=== PATIENT | female | born 1995 | race African-American/Black ===

== ENCOUNTER 2020-02-27 13:10 | Outpatient (CLI) | payer MEDICAID, SELFPAY ==
--- NOTE | ~2020-02-27 | US_ITS ---
EXAMINATION: US OB <= 14 weeks fetus DATE: 02/27/2020 13:50 INDICATION: Routine care. TECHNIQUE: Real-time transabdominal pelvic ultrasound was performed. COMPARISON: None. FINDINGS: The uterus measures 10.5 x 6.4 x 6.1 cm. There is an intrauterine gestational sac. A yolk sac is iden tified. The crown rump length measures 2.6 cm, which correlates with an estimated gestational age of 9 weeks and 3 day(s) (+/-) 6 day(s). heart motion is identified measuring 188 beats per minute (bpm) by M-mode Doppler. The right ovary measures 2.4 x 1.4 x 1.5 cm. The left ovary measures 2.4 x 1.2 x 1.3 cm. There is no free fluid in the pelvis. IMPRESSION: 1. Single living intrauterine gestation with estimated date of delivery of 09/28/2020. Reviewed, dictated and finalized at location A. IMPRESSION: 1. Single living intrauterine gestation with estimated date of delivery of 09/28.
== END 2020-02-27 13:11 | disposition home or self-care (01) ==
PROVIDERS: PCP Obstetrics & Gynecology; Visit Provider Obstetrics & Gynecology
DX: Z34.91 Encounter for supervision of normal pregnancy, unspecified, first trimester (principal); Z3A.00 Weeks of gestation of pregnancy not specified
CPT/HCPCS: 76801

== ENCOUNTER 2020-03-16 14:24 | Emergency (ER) | payer MEDICAID, SELFPAY ==
[2020-03-16] VITALS (8 sets, daily range): BP systolic 114–127; BP diastolic 66–78; PULSE 72–78; RESP 14–15; TEMP 36.3; O2SAT 97–100
[2020-03-16 14:53] LABS: Basophils Percent Auto 0.4 % (0.2-1.2); Eosinophils Absolute Auto 0.1 K/mm3 (0-0.3); Eosinophils Percent Auto 0.8 % (0-4.4); Hematocrit 36.8 % (37.0-47.0); Immature Granulocyte Absolute 0.04 K/mm3 (0.00-0.031); Immature Granulocyte Percent A 0.4 % (0-0.5); Lymphocytes Absolute Auto 2.72 K/mm3 (0.9-3.2); Lymphocytes Percent Auto 27.1 % (18.3-44.2); Mean Corpuscular HGB Conc 35.3 g/dl (32-36); Mean Corpuscular Hemoglobin 33.9 pg (26-34); Mean Corpuscular Volume 96.1 fl (80-100); Mean Platelet Volume 10.1 fl (7.4-10.4); Monocytes Absolute Auto 0.8 K/mm3 (0.1-0.6); Monocytes Percent Auto 7.8 % (2.6-8.5); Neutrophils Absolute Auto 6.4 K/mm3 (1.3-6.7); Neutrophils Percent Auto 63.5 % (45.5-73.1); Platelet Count Result 255 k/mm3 (150-375); Red Blood Count 3.83 M/mm3 (4.2-5.4); Red Cell Distribution Width 12.7 % (11.5-14.5)
[2020-03-16 15:00] LABS: Add Urine Microscopic? YES; Amorphous Sediment Urine Few; Appearance Urine Cloudy (Clear); Bilirubin Urine Negative (Negative); Blood Urine Negative (Negative); Color Urine Yellow (Yellow); Glucose Urine UA Negative (Negative); Ketones Urine Negative (Negative); Leukocyte Esterase Ur Negative LEU/UL (Negative); Mucus Urine Rare /lpf; Nitrate Urine Negative (Negative); Protein Urine Negative (Negative); RBC Urine 0-2 /hpf (0-2); Specific Grav Ur 1.009 (1.001-1.035); Squamous Epithelial Cell Urine Rare /hpf (Few); Urobilinogen Urine Negative mg/dL (<2.0)
[2020-03-16] MEDS: ACETAMINOPHEN 500 MG TABLET 1000 MG PO (15:19)
[2020-03-16] MEDS: SODIUM CHLORIDE 0.9% IV 1,000 ML 999 ML IV CONT (15:19)
[2020-03-16 15:25] LABS: Alanine Aminotransferase 13 U/L (4-35); Albumin Level 3.9 g/dL (3.5-5.1); Alkaline Phosphatase 65 U/L (38-126); Anion Gap 5 mmol/L (8-16); Aspartate Amino Transferase 21 U/L (14-36); Bilirubin,Total < 0.1 mg/dL (0.2-1.3); Blood Urea Nitrogen 3 mg/dL (7-17); Calcium 9.5 mg/dL (8.4-10.2); Carbon Dioxide 28 mmol/L (22-30); Chloride 102 mmol/L (98-107); Estimated CRCL calculation 114 ml/min; Estimated Glomerular Filt Rate > 60; Glucose 81 mg/dL (65-105); Lipase 41 U/L (23-300); Potassium 3.4 mmol/L (3.4-5.0); Sodium 135 mmol/L (137-145)
--- NOTE | 2020-03-16 15:39 | ED.ABDPAIN ---
HPI - Abdominal Pain General Chief Complaint: Abdominal Pain Stated Complaint: 11 weeks , abd cramping, migraine Time Seen by Provider: 03/16/20 14:35 History of Present Illness HPI narrative: Patient is a 24-year-old female who presents ER with dizziness and abdominal discomfort. Patient is 11 weeks . She has a known IUP. She sees Dr. Calvillo. Reports she has had normal p.o. intake. However over the last day she is developed more abdominal cramping and she gets dizzy when she goes from lying to sitting or sitting to standing. No fevers or chills or sweats. No vaginal bleeding or vaginal discharge. She has been without vomiting or diarrhea. No aggravating or alleviating factors. Patient also reports having frontal headache that is typical for her. No change in vision or hearing. Related Data Home Medications Medication Instructions Recorded Confirmed PNV,calcium 71-estv-hdinl acid tablet PO 03/16/20 [ Vitamin Plus Low Iron] Allergies Allergy/AdvReac Type Severity Reaction Status Date / Time No Known Allergies Allergy Verified 03/16/20 14:34 Review of Systems Review of Systems: All systems reviewed & are unremarkable except as noted in HPI and below Constitutional: Constitutional: Denies chills, Denies fever(s) and Denies weakness ENT: Denies nasal congestion and Denies sore throat Cardiovascular: Cardiovascular: Denies chest pain and Denies radiating jaw, neck or arm pain Respiratory: Respiratory: Denies cough, Denies dyspnea and Denies wheezing Gastrointestinal: Gastrointestinal: Reports abdominal pain, Denies diarrhea, Denies nausea and Denies vomiting Genitourinary: Genitourinary: Denies abnormal vaginal bleeding, Denies dysuria and Denies vaginal discharge PMFSH Past Medical History Medical History (Updated 03/16/20 @ 16:29 by Thomas Jackson MD) Healthy female adult Surgical History Surgical History (Updated 03/16/20 @ 15:42 by Thomas Jackson MD) No history of previous surgery Social History Social History (Updated 03/16/20 @ 15:42 by Thomas Jackson MD) Smoking status: Never smoker Gender identity (if verbalized by the patient): Female Exam Narrative: Exam Narrative: GENERAL: Well-appearing, well-nourished, and in no acute distress. HEAD: Normocephalic, atraumatic. ENT: Mucous membranes moist. CHEST: Clear to auscultation. No respiratory distress. HEART: Regular rate and rhythm. Normal peripheral pulses. ABDOMEN: Soft, nontender, nondistended. EXTREMITIES: Normal range of motion. No edema. SKIN: Warm, dry, no rash. NEURO: Alert and oriented x3. PSYCH: Normal mood and affect. Course Course Emergency Course: Patient informed of results. Feels better with fluids and Tylenol. Discharge home. Vital Signs Vital signs: Vital Signs Temperature 97.4 F L 03/16/20 14:30 Pulse Rate 78 03/16/20 14:30 Respiratory Rate 14 03/16/20 14:30 Blood Pressure 118/66 03/16/20 14:30 Pulse Oximetry 100 03/16/20 14:30 Temperature 97.4 F L 03/16/20 14:30 Pulse Rate 78 03/16/20 14:30 Respiratory Rate 14 03/16/20 14:30 Blood Pressure 114/71 03/16/20 15:01 Pulse Oximetry 100 03/16/20 16:15 MDM - Abdominal Pain Lab Data Result diagrams: 03/16/20 14:39 03/16/20 15:09 Labs: Lab Results 03/16/20 03/16/20 03/16/20 Range/Units 14:39 14:40 15:09 WBC 10.0 (4.5-10.0) K/mm3 RBC 3.83 L (4.2-5.4) M/mm3 Hgb 13.0 (12.0-15.0) g/dL Hct 36.8 L (37.0-47.0) % MCV 96.1 (80-100) fl MCH 33.9 (26-34) pg MCHC 35.3 (32-36) g/dl RDW 12.7 (11.5-14.5) % Plt Count 255 (150-375) k/mm3 MPV 10.1 (7.4-10.4) fl Immature Gran % (Auto) 0.4 (0-0.5) % Neut % (Auto) 63.5 (45.5-73.1) % Lymph % (Auto) 27.1 (18.3-44.2) % [place]upe % (Auto) 7.8 (2.6-8.5) % Eos % (Auto) 0.8 (0-4.4) % Baso % (Auto) 0.4 (0.2-1.2) % Lymph # (Auto) 2.72 (0.
== END 2020-03-16 16:53 | disposition home or self-care (01) ==
PROVIDERS: Emergency Medicine; Emergency Provider Emergency Medicine; PCP Obstetrics & Gynecology
DX: R51.9 Headache, unspecified (principal); R10.9 Unspecified abdominal pain
CPT/HCPCS: 36415; 80053; 81001; 83690; 85025; 96360; 99283; A9270; J7030

== ENCOUNTER 2020-04-14 17:13 | Emergency (ER) | payer BC, SELFPAY ==
[2020-04-14 17:35] VITALS: PULSE 77; RESP 18; TEMP 36.9; O2SAT 100
--- NOTE | 2020-04-14 19:39 | PC.NURSE ---
Pt. seen amb out of ed w/ steady gait by ed database security administrator.
== END 2020-04-14 19:39 | disposition left against medical advice (07) ==
LOC: ANHED 19:47
PROVIDERS: PCP Obstetrics & Gynecology
DX: O9A.212 Injury, poisoning and certain other consequences of external causes complicating pregnancy, second trimester (principal)
CPT/HCPCS: 99199

== ENCOUNTER 2020-04-15 08:44 | Emergency (ER) | payer BC, SELFPAY ==
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
[2020-04-15 08:45] VITALS: BP 121/70; PULSE 90; RESP 16; TEMP 36.8; O2SAT 100
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
[2020-04-15 10:34] LABS: Add Urine Microscopic? YES; Appearance Urine Turbid (Clear); Bilirubin Urine Negative (Negative); Blood Urine Negative (Negative); Color Urine Yellow (Yellow); Glucose Urine UA Negative (Negative); Ketones Urine Negative (Negative); Leukocyte Esterase Ur 3+ LEU/UL (Negative); Mucus Urine Rare /lpf; Nitrate Urine Negative (Negative); Protein Urine Negative (Negative); Specific Grav Ur 1.011 (1.001-1.035); Squamous Epithelial Cell Urine Many /hpf (Few); Urobilinogen Urine Negative mg/dL (<2.0)
[2020-04-15 10:53] LABS: Basophils Percent Auto 0.3 % (0.2-1.2); Eosinophils Percent Auto 0.3 % (0-4.4); Hematocrit 35.5 % (37.0-47.0); Hemoglobin 12.7 g/dL (12.0-15.0); Immature Granulocyte Percent A 0.9 % (0-0.5); Lymphocytes Absolute Auto 1.93 K/mm3 (0.9-3.2); Lymphocytes Percent Auto 16.8 % (18.3-44.2); Mean Corpuscular HGB Conc 35.8 g/dl (32-36); Mean Corpuscular Hemoglobin 33.6 pg (26-34); Mean Corpuscular Volume 93.9 fl (80-100); Mean Platelet Volume 9.9 fl (7.4-10.4); Monocytes Absolute Auto 0.7 K/mm3 (0.1-0.6); Monocytes Percent Auto 6.2 % (2.6-8.5); Neutrophils Absolute Auto 8.7 K/mm3 (1.3-6.7); Neutrophils Percent Auto 75.5 % (45.5-73.1); Platelet Count Result 262 k/mm3 (150-375); Red Blood Count 3.78 M/mm3 (4.2-5.4); Red Cell Distribution Width 12.6 % (11.5-14.5); White Blood Count 11.5 K/mm3 (4.5-10.0)
[2020-04-15 11:07] LABS: Anion Gap 3 mmol/L (8-16); Blood Urea Nitrogen 3 mg/dL (7-17); Calcium 9.3 mg/dL (8.4-10.2); Carbon Dioxide 28 mmol/L (22-30); Chloride 104 mmol/L (98-107); Estimated CRCL calculation 119 ml/min; Estimated Glomerular Filt Rate > 60; Glucose 78 mg/dL (65-105); Potassium 3.6 mmol/L (3.4-5.0); Sodium 135 mmol/L (137-145)
== END 2020-04-15 12:04 | disposition home or self-care (01) ==
PROVIDERS: Emergency Medicine Emergency Medical Services; Emergency Provider Emergency Medicine; PCP Obstetrics & Gynecology
DX: O26.892 Other specified pregnancy related conditions, second trimester (principal); R10.9 Unspecified abdominal pain; O46.8X2 Other antepartum hemorrhage, second trimester; Z3A.15 15 weeks gestation of pregnancy; Y04.0XXA Assault by unarmed brawl or fight, initial encounter
CPT/HCPCS: 36415; 76816; 80048; 81001; 85025; 85461; 87086; 99284

== ENCOUNTER 2020-07-06 15:41 | Outpatient (CLI) | payer BC, SELFPAY ==
--- NOTE | ~2020-07-06 | US_ITS ---
EXAMINATION: US OB >= 14 weeks Fetus DATE: 07/06/2020 16:24 INDICATION: Encounter for supervision of normal during third trimester TECHNIQUE: Real-time ultrasound of the pelvis was performed. The interpreting radiologist was not pre sent for the study. COMPARISON: 04/15/2020 FINDINGS: There is a single living fetus in vertex presentation. The placenta is anterior and not low-lying wi th caudal margin >7 cm from the region of the cervical os which is obscured by the vertex. There is a small hypoechoic subchorionic hematoma along the right inferior margin of the placenta which measure s 4.6 x 3.2 x 0.8 cm. heart rate is 149 beats per minute (bpm). The amniotic fluid index is 15 .9 cm, which is normal (5th%-95%: 9.5-22.6 cm at 27 weeks estimated gestational age). The following biometric data were obtained: BPD: 7.4 cm -> 29 weeks 5 days Head circumference: 27.2 cm -> 29 weeks 5 days Abdominal circumference: 24.0 cm -> 28 weeks 2 days Femur length: 5.3 cm -> 28 weeks 1 days These measurements are concordant. Head circumference to abdominal circumference ratio: 1.13 (normal range 0.99-1.21). Estimated weight: 1237 g (+/-) 186 g. or 2 lbs. 12 oz. (+/-) 7 oz. IMPRESSION: 1. Single living fetus in vertex presentation with heart rate of 149 bpm. 2. Small subchorionic hematoma. 3. Normal amniotic fluid index of 15.9 cm. 3. Estimated weight is 79th percentile by Hadlock criteria when 10/02/2020 is used as the estimat ed date of delivery (ALEXIS). Please correlate with clinical information or earlier ultrasounds for most accurate ALEXIS. Reviewed, dictated and finalized at location A. ERCIAL SALES SPECIALIST IMPRESSION: 1. Single living fetus in vertex presentation with heart rate of 149 bpm. 2. Small subchorionic hematoma. 3. Normal amniotic fluid index of 15.9 cm. 3. Estimated weight is 79th percentile by Hadlock criteria when 10/02/2020 is used as the estimated date of delivery (ALEXIS). Please correlate with clinical information or earlier ultrasounds for most accurate ALEXIS.
== END 2020-07-06 15:42 | disposition home or self-care (01) ==
PROVIDERS: PCP Obstetrics & Gynecology; Visit Provider Physician Assistant
DX: Z34.93 Encounter for supervision of normal pregnancy, unspecified, third trimester (principal); Z3A.00 Weeks of gestation of pregnancy not specified
CPT/HCPCS: 76805

== ENCOUNTER 2020-07-28 13:01 | Outpatient (CLI) | payer BC, SELFPAY ==
--- NOTE | ~2020-07-28 | US_ITS ---
EXAMINATION: US OB follow up EXAM DATE: 07/28/2020 13:28 INDICATION: Subchorionic hematoma follow-up. Follow-up growth. 3rd trimester. TECHNIQUE: Pelvic obstetrical transabdominal sonogram was performed by a technologist. There are mu ltiple grayscale and Doppler images available for interpretation. Comparison is made to prior examina tion from 07/06/2020. FINDINGS: There is a single fetus identified in vertex presentation with a heart rate of 134 beats pe r minute. The placenta is located in the anterior position. There is no sonographic evidence of retr oplacental hemorrhage identified, previously seen placental abnormality no longer identified. There i s subjectively expected amount of amniotic fluid. BIOMETRIC DATA: Biparietal diameter (BPD): 8.1cm ----------------> 32 weeks 5 days. Head circumference (HC): 27.9 cm ----------------> 30 weeks 3 days. Abdominal circumference (AC): 26.6 cm ----------> 30 weeks 5 days. Femur length (FL): 6.0 cm --------------------------> 31 weeks 1 day. These measurements are concordant. HC/AC ratio is 1.05 (The 5th -- 95th percentile range is 0.96-1.16. Estimated weight is 1677 g +/- 252 g. This is the 52nd percentile when the currently reported clinical gestation age 30 weeks 4 days, clinical estimated date of delivery (ALEXIS-OPE) 10/02/2020 is use d. estimated gestational age based on measurements from this exam is 31 weeks 2 days, with an e stimated date of delivery (ALEXIS-AUA) 09/27/2020. IMPRESSION: 1. Single fetus in vertex presentation with heart rate 134 beats per minute. 2. Estimated weight of 1677 grams, 52nd percentile using the currently reported clinical gesta tion age of 30 weeks 4 days, ALEXIS(OPE) 10/02/2020. 3. Previously seen placental abnormality no longer identified. Reviewed, dictated and finalized at location A. SECURITY ARCHITECT IMPRESSION: 1. Single fetus in vertex presentation with heart rate 134 beats per minute. 2. Estimated weight of 1677 grams, 52nd percentile using the currently r eported clinical gestation age of 30 weeks 4 days, ALEXIS(OPE) 10/02/2020. 3. Previously seen placental abnormality no longer identified.
== END 2020-07-28 13:02 | disposition home or self-care (01) ==
PROVIDERS: PCP Obstetrics & Gynecology; Visit Provider Physician Assistant
DX: O46.93 Antepartum hemorrhage, unspecified, third trimester (principal); Z3A.30 30 weeks gestation of pregnancy
CPT/HCPCS: 76816

== ENCOUNTER 2020-09-25 06:50 | Inpatient (IN) | payer BC, SELFPAY ==
[2020-09-25] VITALS (48 sets, daily range): BP systolic 96–160; BP diastolic 48–112; PULSE 61–99; RESP 16; TEMP 36.7–37.3; O2SAT 99; BMI 26.4
--- NOTE | 2020-09-25 07:20 | P.PNAN_ITS ---
Anes - Eval Pre Procedure Procedure: labor epidural Date/Time: 09/25/20 07:20 Surgeon: marta Preop Diagnosis: pain during labor Pre Op Diagnosis: IOL Patient Data Age: 24 Gender: F Height: Weight: Allergies Allergy/AdvReac Type Severity Reaction Status Date / Time No Known Allergies Allergy Verified 04/15/20 09:03 Home Medications Medication Instructions Recorded Confirmed Type No Home Medications 09/02/20 09/02/20 History Patient hx anesthesia problems: none Family hx anesthesia problems: none [facility] Past Medical History Medical History Healthy female adult Surgical History Surgical History No history of previous surgery Family History Family History (Updated 09/02/20 @ 12:58 by David Schmitz RN) Other No pertinent family history Social History Social History Smoking status: Never smoker Substance use: never Gender identity (if verbalized by the patient): Female Spiritual care concerns: No Exam Day of Procedure 09/25/20 07:20
[2020-09-25 07:24] LABS: Basophils Percent Auto 0.4 % (0.2-1.2); Eosinophils Absolute Auto 0.1 K/mm3 (0-0.3); Eosinophils Percent Auto 1.3 % (0-4.4); Hematocrit 33.2 % (37.0-47.0); Hemoglobin 11.5 g/dL (12.0-15.0); Immature Granulocyte Absolute 0.12 K/mm3 (0.00-0.031); Immature Granulocyte Percent A 1.2 % (0-0.5); Lymphocytes Absolute Auto 2.32 K/mm3 (0.9-3.2); Lymphocytes Percent Auto 23.1 % (18.3-44.2); Mean Corpuscular HGB Conc 34.6 g/dl (32-36); Mean Corpuscular Hemoglobin 32.8 pg (26-34); Mean Corpuscular Volume 94.6 fl (80-100); Mean Platelet Volume 10.4 fl (7.4-10.4); Monocytes Percent Auto 9.8 % (2.6-8.5); Neutrophils Absolute Auto 6.5 K/mm3 (1.3-6.7); Neutrophils Percent Auto 64.2 % (45.5-73.1); Platelet Count Result 192 k/mm3 (150-375); Red Blood Count 3.51 M/mm3 (4.2-5.4); Red Cell Distribution Width 13.9 % (11.5-14.5); White Blood Count 10.1 K/mm3 (4.5-10.0)
[2020-09-25] MEDS: LACTATED RINGERS 1,000 ML 125 ML IV CONT (07:24)
[2020-09-25] MEDS: OXYTOCIN 30 UNITS/NS 500 ML 30 UNITS/500 ML BAG IV CONT (07:24)
--- NOTE | 2020-09-25 07:26 | LDADM ---
This patient, Yolanda Moulton, was admitted to Labor/Delivery/Recovery 105 on 09/25/20 at 06:50. Plans for labor, pain management and were discussed with patient. Patient/family oriented to hospital policies and general routines including ID bracelet, bed and alarms, visiting hours, pain management, procedures, bathroom and other care routines, personal items, smoking policy, room service/diet and guest tray routines, security routines, and visiting hours. Patient/Family are encouraged to report perceived risks to care and to ask questions if they do not understand what they are told or what they should do. See OBIX for further documentation.
[2020-09-25 08:42] LABS: Amphetamine Screen Urine Negative (Negative); Barbiturate Screen Urine Negative (Negative); Benzodiazepines Screen Urine Negative (Negative); Cannabinoid Screen Urine Positive (Negative); Cocaine Screen Urine Negative (Negative); Methadone Screen Urine Negative (Negative); Opiate Screen Urine Negative (Negative); Phencyclidine Screen Urine Negative (Negative)
--- NOTE | 2020-09-25 14:04 | PM.IMHP ---
H&P: HPI History of Present Illness Date/Time: 09/25/20 14:04 24yo F presents for elective IOL at 39w4d. History of rapid labor I explained her condition procedure and risks she understands accepts and agrees to proceed she understands maternal or indications for delivery with risk involved including but not limited to bleeding infection injury to bladder bowel baby pelvic vessels DVT pneumonia wound infection dystocia post hemorrhage and the risk of anesthesia Chief Complaint: Term Elective induction of labor Review of Systems Review of Systems: All systems reviewed & are unremarkable except as noted in HPI and below Constitutional: Constitutional: Reports no additional constitutional complaints Eyes: Eyes: Reports no additional eye complaints ENT: Reports system reviewed and no additional complaints, except as documented Cardiovascular: Cardiovascular: Reports no additional cardiovascular complaints Respiratory: Respiratory: Reports no additional respiratory complaints Gastrointestinal: Gastrointestinal: Reports no additional gastrointestinal complaints Genitourinary: Genitourinary: Reports no additional female genitourinary complaints Musculoskeletal: Musculoskeletal: Reports no additional musculoskeletal complaints Integumentary/Breasts: Skin/Breast: Reports system reviewed and no additional complaints, except as docu Neurologic: Reports system reviewed and no additional complaints, except as documented Psychiatric: Psychiatric: Reports no additional psychiatric complaints Endocrine: Endocrine: Reports no additional endocrine complaints Hematologic/Lymphatic: Hematologic/Lymphatic: Reports no additional hematologic/lymphatic complaints Allergic/Immunologic: Allergic/Immunologic: Reports no additional allergic/immunologic complaints [facility] Past Medical History Medical History (Updated 09/25/20 @ 14:18 by Edwin Calvillo MD) BV (bacterial vaginosis) Candidiasis, vagina Healthy female adult Trichomonal vaginitis Vaginal delivery 01/30/20131407 lbs.6 oz.MStandard Vaginal [facility] Surgical History Surgical History No history of previous surgery Family History Family History Other No pertinent family history Social History Social History (Updated 09/25/20 @ 14:18 by Edwin Calvillo MD) Smoking status: Never smoker Second hand tobacco smoke exposure: No Alcohol intake: never Substance use: never Substance use type: marijuana Living arrangements: with family Occupation/Education: unemployed Gender identity (if verbalized by the patient): Female Sexual Orientation (if Verbalized by the Patient): Straight or Heterosexual Spiritual care concerns: No Agree to blood products: Yes Meds Home Medications and Allergies Home Medications Medication Instructions Recorded Confirmed Type No Home Medications 09/02/20 09/02/20 History Allergies Allergy/AdvReac Type Severity Reaction Status Date / Time No Known Allergies Allergy Verified 04/15/20 09:03 Vital Signs Vital Signs - 24 hr 09/25/20 07:30 09/25/20 07:46 09/25/20 08:00 Temperature 98.2 F Pulse Rate 82 77 70 Blood Pressure 120/78 107/61 110/67 09/25/20 08:15 09/25/20 08:30 09/25/20 08:45 Temperature Pulse Rate 66 66 64 Blood Pressure 103/87 113/71 112/66 09/25/20 09:00 09/25/20 09:16 09/25/20 09:30 Temperature 98.2 F Pulse Rate 71 69 Blood Pressure 104/64 107/57 L 09/25/20 09:46 09/25/20 10:00 09/25/20 10:15 Temperature Pulse Rate 67 65 64 Blood Pressure 107/87 101/55 L 96/49 L 09/25/20 10:30 09/25/20 10:45 09/25/20 11:00 Temperature Pulse Rate 76 87 67 Blood Pressure 110/66 102/73 116/63 09/25/20 11:30 09/25/20 11:31 09/25/20 11:46 Temperature 98.2 F Pu
--- NOTE | 2020-09-25 14:13 | WPDHPUPDATE1 ---
History and Physical Update Update Date/Time: 09/25/20 14:13 History and Physical has been reviewed, including an updated exam of the patient. There are NO changes in the patient's condition. Risks, benefits, and alternatives have been discussed and questions answered. Patient agrees to proceed with procedure. 24yo F presents for elective IOL at 39w4d. History of rapid labor I explained her condition procedure and risks she understands accepts and agrees to proceed she understands maternal or indications for delivery with risk involved including but not limited to bleeding infection injury to bladder bowel baby pelvic vessels DVT pneumonia wound infection dystocia post hemorrhage and the risk of anesthesia
--- NOTE | 2020-09-25 14:13 | WPDOBADMIT ---
Obstetrics - Admit Note Admission Note: record reviewed. No pertinent additions to the history and/or any subsequent changes in the physical findings that are not consistent with the expected course of the were found. Additions to the history and/or subsequent changes in the physical findings follow. None. 24yo F presents for elective IOL at 39w4d. History of rapid labor I explained her condition procedure and risks she understands accepts and agrees to proceed she understands maternal or indications for delivery with risk involved including but not limited to bleeding infection injury to bladder bowel baby pelvic vessels DVT pneumonia wound infection dystocia post hemorrhage and the risk of anesthesia
--- NOTE | 2020-09-25 14:23 | P.PNOB_ITS ---
Pain Control Date/time seen: 09/25/20 14:23 Pain control: tolerating well Pelvic Exam Dilation (cm): 4 Effacement (%): 80 station: -2 Amniotic membrane status: Ruptured Comments: Artificial rupture of membranes clear fluid intrauterine pressure catheter placed Contractions Monitor mode: Internal Contraction frequency: 5 Contraction duration: 40 Contraction pattern: Regular Contraction phase: Contraction Contraction intensity: Mild Status status: Category l Assessment and Plan Pitocin rate (mU/min): 8 Assessment: induction ongoing Plan: continuous present management Comments: NCB, yes to circumcision, /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 Anibal Morales Jr. for baby's name. no epidural NCB.
--- NOTE | 2020-09-25 17:00 | PM.OBPNLAB ---
Pain Control Date/time seen: 09/25/20 17:00 Pain control: tolerating well Pelvic Exam Dilation (cm): 6 Effacement (%): 80 station: -2 Amniotic membrane status: Ruptured Contractions Monitor mode: Internal Contraction frequency: 5 Contraction pattern: Regular Contraction phase: Contraction Contraction intensity: Mild Status status: Category l Assessment and Plan Pitocin rate (mU/min): 8 Assessment: active labor and induction ongoing Plan: continuous present management
--- NOTE | 2020-09-25 17:35 | PM.OBPNLAB ---
Pain Control Date/time seen: 09/25/20 17:33 Pain control: tolerating well Pelvic Exam Dilation (cm): 8 Effacement (%): 100 station: 0 Amniotic membrane status: Ruptured Contractions Monitor mode: Internal Contraction frequency: 2 Contraction duration: 45 Contraction pattern: Regular Contraction phase: Contraction Contraction intensity: Strong/Firm Status status: Category l Assessment and Plan Pitocin rate (mU/min): 8 Assessment: active labor Plan: continuous present management
[2020-09-25] MEDS: IBUPROFEN 600 MG TABLET (18:00)
--- NOTE | 2020-09-25 18:06 | P.PCNOB_ITS ---
OB - Delivery Note Procedure Delivery date: 09/25/20 Procedure: Normal spontaneous vertex vaginal delivery a viable male infant and placenta events: Labor Induction Intrapartal events: None Induction method: per pitocin protocol Delivery augmentation: rupture of membranes Delivery monitor: external FHT and internal uterine Route of delivery: Episiotomy description: None Laceration Description: None Specimen: Yes (Placenta, cord blood, cord blood gases) Quantitative Blood Loss (ml): 140 Anesthesia type: None Disposition: floor Complications: None Narrative: Patient completely dilated a short 2nd stage of labor normal spontaneous vertex vaginal delivery over an intact perineum of a viable male infant with delivery of anterior shoulder without difficulty infant delivered and placed on the maternal abdomen with terminal meconium past. spontaneous respirations and cry no gross abnormalities on the exam scores 9 and 9 weight 7 lb 1 oz born at 5:44 p.m. cord gas obtained cord blood obtained placenta delivered intact with a three-vessel cord the uterus contracted well P itocin given intravenously no cuts tears or lacerations the cervix and rectum were checked no sponges left in the vagina uterus was firm blood clots removed from the intrauterine cavity Baby Date of : 09/[birth year] Time of : 17:44 Weeks of gestation at delivery: 39 Infant gender: Male (Anibal Benedict) Weight (pounds): 7 Weight (ounces): 1 presentation: vertex position: Left Occiput Anterior Placenta delivery description: Spontaneous and Normal Configuration cord vessel description: 3 Vessels score one minute: 9 score five minutes: 9 Narrative: Normal transition taken to the nursery in stable condition viable male infant weighing 7 lb 1 oz scores 9 and 9 born at 5:44 p.m. Placenta intact three-vessel cord
[2020-09-25] MEDS: OXYTOCIN 30 UNITS/NS 500 ML 30 UNITS/500 ML BAG 125 UNITS IV CONT (18:07)
[2020-09-25] MEDS: WITCH HAZEL 40 PADS 1 PAD TOPICAL (19:39)
[2020-09-25] MEDS: BENZOCAINE 20% AER SPR (*SP) 56 GM CAN 1 SPRAY TOPICAL (19:39)
--- NOTE | 2020-09-25 20:10 | OBPPTRN ---
Patient transferred to post room #291 via wheelchair. Support person present. Oriented to unit, room, information board, rooming in, admission packet and security measures. Patient verbalizes understanding. with patient.
[2020-09-26] MEDS: IBUPROFEN 600 MG TABLET PO ×2 (03:49→14:53)
[2020-09-26 03:50] VITALS: BP 124/67; PULSE 67; RESP 16; TEMP 36.4; O2SAT 100
[2020-09-26 05:26] LABS: Hematocrit 30.9 % (37.0-47.0); Hemoglobin 10.4 g/dL (12.0-15.0)
[2020-09-26 08:15] VITALS: BP 124/62; PULSE 67; PULSE 72; RESP 14; RESP 16; TEMP 36.4; O2SAT 100; O2SAT 98
--- NOTE | 2020-09-26 12:23 | PM.OBPNVD ---
OB - PN: Subj Subjective Date/time seen: 09/26/20 12:23 Patient comments: no complaints, pain well controlled, tolerating diet and flatus present [place] baby status: doing well and bottle feeding well [place] feeding status: exclusively bottle feeding OB - PN: Obj Data Labs CBC & Chem 7: 09/26/20 03:52 Labs: Laboratory Results - last 24 hr 09/26/20 03:52 Hgb 10.4 L Hct 30.9 L OB - PN A/P Assessment and Plan (1) Term delivered: Code(s): O80 - Encounter for full-term uncomplicated delivery Status: Acute Time Spent With Patient Time: Total time spent is greater than 50% in coordination of care (as documented) at patient's floor/unit and/or counseling patient: Review of Systems Review of Systems: All systems reviewed & are unremarkable except as noted in HPI and below Exam Const: General: comfortable, no acute distress, alert and awake Chest: Breast/axilla inspection: normal inspection of the breasts Resp: Effort & Inspection: normal respiratory effort Cardio: Rate: regular rate GI: GI Palp: Yes Soft to palpation Percussion: Yes normal to percussion Auscultation: normal bowel sounds : General: Yes bladder normal to inspection and Yes no CVA tenderness Psych: Appearance: grossly normal Mental Status: mental status grossly normal Affect: normal affect Attitude: cooperative Thought content: Yes Normal thought content present Judgement: Good judgement present (Psych)
[2020-09-26 12:30] VITALS: BP 120/60; PULSE 60; PULSE 72; RESP 16; RESP 18; TEMP 36.9; O2SAT 100; O2SAT 97
[2020-09-26] MEDS: DOCUSATE SODIUM 100 MG CAPSULE PO (14:53)
[2020-09-26 15:15] VITALS: BP 117/53; PULSE 61; PULSE 72; RESP 14; RESP 18; TEMP 37.1; O2SAT 100; O2SAT 96
[2020-09-26 19:50] VITALS: BP 92/42; PULSE 63; RESP 16; TEMP 36.6
[2020-09-27] MEDS: IBUPROFEN 600 MG TABLET PO (02:17)
[2020-09-27 09:30] VITALS: BP 111/73; PULSE 57; PULSE 63; RESP 14; RESP 16; TEMP 36.8; O2SAT 100; O2SAT 97
--- NOTE | 2020-09-27 11:04 | PM.OBPNVD ---
OB - PN: Subj Subjective Date/time seen: 09/27/20 11:04 Patient comments: no complaints, pain well controlled, tolerating diet and flatus present [place] baby status: doing well and bottle feeding well [place] feeding status: exclusively bottle feeding OB - PN: Obj Data Labs CBC & Chem 7: 09/26/20 03:52 OB - PN A/P Assessment and Plan (1) Term delivered: Code(s): O80 - Encounter for full-term uncomplicated delivery Status: Acute Plan day: 2 Plan: routine care and discharge home Time Spent With Patient Time: Total time spent is greater than 50% in coordination of care (as documented) at patient's floor/unit and/or counseling patient: Time with patient: less than 15 minutes Review of Systems Review of Systems: All systems reviewed & are unremarkable except as noted in HPI and below Exam Const: General: comfortable and no acute distress Orientation/consciousness: patient oriented x3 Chest: Breast/axilla inspection: normal inspection of the breasts Resp: Effort & Inspection: normal respiratory effort Cardio: Rate: regular rate GI: GI Palp: Yes Soft to palpation : External Female Exam: normal external appearance Psych: Appearance: grossly normal Mental Status: mental status grossly normal Affect: normal affect Attitude: cooperative
--- NOTE | 2020-09-27 11:06 | PM.OBDSVD ---
DS: Admitting Diagnosis Admitting Diagnosis Admitting Diagnosis: Term Elective induction of labor DS: Discharge Diagnosis Discharge Diagnosis (1) Term delivered: Code(s): O80 - Encounter for full-term uncomplicated delivery Status: Acute (2) Encounter for elective induction of labor: Code(s): Z34.90 - Encounter for supervision of normal , unspecified, unspecified trimester Status: Acute OB - DS: Summary Hospital Course Time spent discussing smoking cessation with patient: 3 to 10 minutes OB Procedures : Ultrasound OB Procedures Intrapartum: Spontaneous Vag Delivery OB Procedures: : None Peripartum Data Infant Delivery Method: Natural Vaginal Laceration Description: None Episiotomy description: None complications: none 1: Gender: Male Disposition of : home Status at Discharge Functional status at discharge: independent ambulation Overall status at discharge: patient is back to baseline Time Spent with Patient Time attestation: Total time spent providing and/or coordinating discharge services: Time spent: Less than 30 minutes Exam Const: General: comfortable, no acute distress, alert and awake Orientation/consciousness: patient oriented x3 Limitations: no limitations Chest: Breast/axilla inspection: normal inspection of the breasts Resp: Effort & Inspection: normal respiratory effort Cardio: Rate: regular rate GI: GI Palp: Yes Soft to palpation Percussion: Yes normal to percussion Auscultation: normal bowel sounds : General: Yes no CVA tenderness External Female Exam: normal external appearance Psych: Appearance: grossly normal Mental Status: mental status grossly normal Affect: normal affect Attitude: cooperative Thought content: Yes Normal thought content present Judgement: Good judgement present (Psych) DS: Data Data Completed and Pending Labs on day of discharge: Labs from last 24 hours 09/25/20 09/25/20 09/25/20 07:10 07:10 07:10 WBC RBC Hgb Hct MCV MCH MCHC RDW Plt Count MPV Immature Gran % (Auto) Neut % (Auto) Lymph % (Auto) [place] % (Auto) Eos % (Auto) Baso % (Auto) Lymph # (Auto) [place] # (Auto) Eos # (Auto) Baso # (Auto) Abs Immat Gran (auto) Absolute Neuts (auto) Absolute Nucleated RBC Nucleated RBC % Urine Opiates Screen Negative Urine Methadone Screen Negative Ur Barbiturates Screen Negative Ur Phencyclidine Scrn Negative Ur Amphetamine Screen Negative U Benzodiazepines Scrn Negative Urine Cocaine Screen Negative U Cannabinoids Screen Positive A RPR Pending Blood Type O Positive Antibody Screen Negative 09/25/20 07:10 WBC 10.1 H RBC 3.51 L Hgb 11.5 L Hct 33.2 L MCV 94.6 MCH 32.8 MCHC 34.6 RDW 13.9 Plt Count 192 MPV 10.4 Immature Gran % (Auto) 1.2 H Neut % (Auto) 64.2 Lymph % (Auto) 23.1 [place] % (Auto) 9.8 H Eos % (Auto) 1.3 Baso % (Auto) 0.4 Lymph # (Auto) 2.32 [place] # (Auto) 1.0 H Eos # (Auto) 0.1 Baso # (Auto) 0.0 Abs Immat Gran (auto) 0.12 H Absolute Neuts (auto) 6.5 Absolute Nucleated RBC 0.0 Nucleated RBC % 0.0 Urine Opiates Screen Urine Methadone Screen Ur Barbiturates Screen Ur Phencyclidine Scrn Ur Amphetamine Screen U Benzodiazepines Scrn Urine Cocaine Screen U Cannabinoids Screen RPR Blood Type Antibody Screen Discharge Plan Discharge Attending physician on discharge: Edwin Calvillo Discharging Clinician: Edwin Calvillo Anticipated Discharge Date/Time: 09/27/20 11:06 Patient Disposition: Home, Self-Care Activity: may shower, unlimited and may drive after 2 weeks Diet: as tolerated and regular Wound Care Instructions: follow printed instructions Discharge Instructions: Education: Mom and Baby Guide Given to: Mother Follow-Up: Call your chiquita
[2020-09-28 08:59] VITALS: BP 128/81; PULSE 60; RESP 16; TEMP 37; O2SAT 98
[2020-09-28 11:30] LABS: Rapid Plasma Reagin Non-Reactive (NonReactive)
== END 2020-09-27 12:55 | disposition home or self-care (01) | DRG 560 ==
LOC: ANHLDR 18:22 → ANHOB2 20:24
PROVIDERS: Admitting Provider Obstetrics & Gynecology; Visit Provider Obstetrics & Gynecology
DX: O36.8330 Maternal care for abnormalities of the fetal heart rate or rhythm, third trimester, not applicable or unspecified (principal); Z37.0 Single live birth; Z3A.39 39 weeks gestation of pregnancy
CPT/HCPCS: 36415; 80307; 85014; 85018; 85025; 86592; 86850; 86900; 86901; 88307; A9270; J2590; J7120